=== PATIENT | male | born 1975 | race Caucasian/White ===

== ENCOUNTER 2020-09-19 14:16 | Emergency (ER) | payer BC, SELFPAY ==
[2020-09-19 14:24] VITALS: BP 148/89; PULSE 77; RESP 12; TEMP 36.3; O2SAT 99
--- NOTE | 2020-09-19 14:42 | ED.WOUNDLAC ---
HPI - Wound/Laceration General Chief Complaint: Wound/Laceration Stated Complaint: stabbed nail in rt hand Time Seen by Provider: 09/19/20 14:42 Source: patient Mode of arrival: ambulatory Limitations: no limitations History of Present Illness HPI narrative: Kris Knight is a 45 yo male with no PMH who comes to [facility] getting nail puncture injury to hand yesterday. Has small amount of erythema at the base of the finger 4 of right hand; needs tetanus booster Related Data Allergies Allergy/AdvReac Type Severity Reaction Status Date / Time Penicillins Allergy Unknown Verified 09/01/15 15:55 NUTS Allergy Unknown Uncoded 09/01/15 15:55 Review of Systems Review of Systems: Narrative: CONSTITUTIONAL: Denies fever, chills, sweats. EYES: Denies visual changes, redness, discharge. ENT: Denies rhinorrhea, congestion, sore throat, otalgia. CARDIOVASCULAR: Denies chest pain, palpitations, edema. RESPIRATORY: Denies dyspnea, wheezing, cough GASTROINTESTINAL: Denies abdominal pain, nausea, vomiting, diarrhea. GENITOURINARY: Denies dysuria, hematuria, abnormal discharge SKIN: Denies rash or itching. Small puncture wound of dorsum of hand base of finger for above the knuckle NEUROLOGIC: Denies numbness, or focal weakness. PSYCHIATRIC: Denies anxiety or depression. PMFSH Past Medical History Medical History No acute medical problems Family History Family History Other No acute medical problems Social History Social History (Updated 09/19/20 @ 14:49 by Joann Colon CNP) Smoking status: Never smoker Alcohol intake: current Comments At time of signature, I agree with nursing past medical, surgical, social and family history. There is no relevant family history pertinent to the presenting complaint. Blood pressure is elevated today with follow-up with [facility] next week Exam Narrative: Exam Narrative: GENERAL: This is a well-nourished, well-developed patient, in mild distress. HEAD: normocephalic, atraumatic. EYES: Sclera clear/white. Vision is grossly intact. EARS: External ears normal. Hearing grossly intact. NOSE: External nose normal without nasal discharge, nares without redness, no rhinorrhea. THROAT: Mucous membranes moist NECK: Neck supple CARDIOVASCULAR: Regular rate and rhythm without murmurs, gallops, or rubs. RESPIRATORY: Clear to auscultation. Breath sounds equal bilaterally. No wheezes, rales, or rhonchi. GASTROINTESTINAL: Abdomen soft, SKIN: warm, intact with no suspicious lesions or rash, good texture and turgor. No puncture on the dorsum of right hand with mild erythema surrounding the puncture (2x2) no induration no oozing no drainage; will give finger opposition, 5 out of 5 in her finger strength NEURO: awake, alert, and oriented to person, place and time. There were no obvious focal neurologic abnormalities. Steady gait EXTREMITIES: Normal range of motion. BACK: Nontender without deformity Course Course Emergency Course: [facility] on the dorsum of right hand base of finger for above PNP; swelling no drainage no induration erythematous 2 x 2 Started on clindamycin and given tetanus booster Vital Signs Vital signs: Vital Signs Temperature 97.3 F L 09/19/20 14:24 Pulse Rate 77 09/19/20 14:24 Respiratory Rate 12 09/19/20 14:24 Blood Pressure 148/89 H 09/19/20 14:24 Pulse Oximetry 99 09/19/20 14:24 Temperature 97.3 F L 09/19/20 14:24 Pulse Rate 77 09/19/20 14:24 Respiratory Rate 12 09/19/20 14:24 Blood Pressure 148/89 H 09/19/20 14:24 Pulse Oximetry 99 09/19/20 14:24 MDM - Wound/Laceration Differential Diagnosis Differential diagnosis: Likely laceration, abscess, abrasion, avulsion of skin and other Critical Care Time Critical Care Time Critical Care Time: No Discharge Plan Discharge Clinical
[2020-09-19] MEDS: TETANUS,DIPHTHERIA,AC PERTUSSIS ADULT (0.5 ML) BOOSTRIX IM (14:48)
== END 2020-09-19 15:09 | disposition home or self-care (01) ==
PROVIDERS: Emergency Provider Nurse Practitioner; PCP Physician Assistant
DX: S61.431A Puncture wound without foreign body of right hand, initial encounter (principal); W26.0XXA Contact with knife, initial encounter; Z23 Encounter for immunization
CPT/HCPCS: 90471; 90715; 99203; G0463

== ENCOUNTER 2021-09-29 00:36 | Day surgery (SDC) | payer BC, SELFPAY ==
[2021-09-14 12:31] VITALS: BMI 30.4
--- NOTE | 2021-09-28 12:51 | PM.HPGS ---
History of Present Illness History of Present Illness Consent: Risks, benefits, and alternatives have been discussed and questions answered. Patient agrees to proceed with procedure. Chief complaint: neoplasm screening Narrative: Kris Knight is a 46 year old male Was referred for colon cancer screening. He has a strong family history of colon cancer. Both his parents had precancerous polyps. His maternal grandmother had colon cancer. His sister who recently had a colonoscopy also was found to have polyps. Review of Systems Review of Systems: All systems reviewed & are unremarkable except as noted in HPI and below PMFSH Past Medical History Medical History Hypothyroidism No acute medical problems Family History Family History Other No acute medical problems Social History Social History Smoking status: Never smoker Alcohol intake: current Substance use type: does not use Living arrangements: with family Meds Home Medications and Allergies Home Medications Medication Instructions Recorded Confirmed Type clindamycin HCl 300 mg PO Q8H #30 cap 09/19/20 09/29/21 Rx levothyroxine 75 mcg PO DAILY 09/14/21 09/29/21 History Allergies Allergy/AdvReac Type Severity Reaction Status Date / Time Penicillins Allergy Unknown Hives Verified 09/29/21 06:49 NUTS Allergy Unknown Anaphylaxis Uncoded 09/29/21 06:49 Exam Resp: Auscultation: clear to auscultation bilaterally Cardio: Rate: regular rate Rhythm: regular rhythm GI: GI Palp: Yes Soft to palpation and No Tenderness to palpation present (GI) Assessment and Plan Assessment and plan (1) Colon cancer screening: Code(s): Z12.11 - Encounter for screening for malignant neoplasm of colon Status: Acute Assessment and Plan: Colonoscopy with possible biopsy or polypectomy or cautery or injection of substances.
--- NOTE | 2021-09-28 13:22 | WPDANESEPPF ---
Anes - Initial Pre Proc Eval Procedure: Operation Date: 09/29/21 08:00 Proposed Procedures p Screening Colonoscopy - Dylon Dalal MD Date/Time: 09/28/21 13:22 Surgeon: Dylon Dalal MD Pre Op Diagnosis: neoplasm screening Patient Data Age: 46 Gender: M Height: 1.73 m Weight: 90.9 kg Allergies Allergy/AdvReac Type Severity Reaction Status Date / Time Penicillins Allergy Unknown Hives Verified 09/29/21 06:49 NUTS Allergy Unknown Anaphylaxis Uncoded 09/29/21 06:49 Home Medications Medication Instructions Recorded Confirmed Type clindamycin HCl 300 mg PO Q8H #30 cap 09/19/20 09/29/21 Rx levothyroxine 75 mcg PO DAILY 09/14/21 09/29/21 History Patient hx anesthesia problems: none Family hx anesthesia problems: none Results Review: All pre-operative results and documents have been reviewed as part of the pre-operative evaluation. PMFSH Past Medical History Medical History Hypothyroidism No acute medical problems Family History Family History Other No acute medical problems Social History Social History Smoking status: Never smoker Alcohol intake: current Substance use type: does not use Living arrangements: with family Anes - Eval Final PreProcedure Day of Procedure 09/28/21 13:22 Patient weight: obese Heart: regular rate and rhythm Lungs: clear to auscultation and normal air movement Airway: Mallampati scale class II Neurological: alert and oriented Last oral intake: >/= 8 hours ASA classification: II Emergent: no Anesthetic plan: proceed Anesthesia type and monitoring: general GIVS and standard monitoring Results Review: All pre-operative results and documents have been reviewed as part of the pre-operative evaluation. Informed Consent: The patient's anesthetic plan and its attendant risks and benefits were discussed with the patient/family/POA. Questions were solicited and answers provided to the satisfaction of the patient/family/POA.
[2021-09-29 06:39] VITALS: BP 127/80; PULSE 80; RESP 18; TEMP 36.1; O2SAT 99; BMI 30.7
[2021-09-29] MEDS: LACTATED RINGERS 1,000 ML 150 ML IV CONT (06:58)
[2021-09-29] MEDS: SIMETHICONE ORAL SUSPENSION 20 MG/0.3 ML 30 ML BOTTLE 0.6 ML IRRIGATION (08:00)
[2021-09-29 08:06] VITALS: BP 124/86; PULSE 77; RESP 22; O2SAT 96
[2021-09-29 08:16] VITALS: BP 115/78; PULSE 61; RESP 22; O2SAT 100
[2021-09-29 08:26] VITALS: BP 117/88; PULSE 73; RESP 22; O2SAT 99
== END 2021-09-29 08:45 | disposition home or self-care (01) ==
PROVIDERS: PCP Physician Assistant; Visit Provider Internal Medicine Gastroenterology
PROC: 0DJD8ZZ Inspection of Lower Intestinal Tract, Via Natural or Artificial Opening Endoscopic (ICD-10-PCS; CPT 45378; principal; 2021-09-29 08:00)
DX: Z12.11 Encounter for screening for malignant neoplasm of colon (principal); K57.30 Diverticulosis of large intestine without perforation or abscess without bleeding; E03.9 Hypothyroidism, unspecified; Z80.0 Family history of malignant neoplasm of digestive organs; Z83.71 Family history of colonic polyps
CPT/HCPCS: 45378; J2704; J7120

== ENCOUNTER → 2022-09-21 12:47 | Outpatient (CLI) | payer BC, SELFPAY ==
--- NOTE | ~2022-09-21 | CT_ITS ---
EXAMINATION: CT sinus wo con DATE: 09/21/2022 13:00 INDICATION: Hypertrophy of the nasal turbinates. History of sinus surgery approximately 6 years ago. TECHNIQUE: Computed tomography (CT) of the paranasal sinuses was performed without intravenous contra st. The dose-length product (DLP) was 268.51 mGy-cm. Iterative reconstruction was used. COMPARISON: None FINDINGS: There is normal development and pneumatization of the paranasal sinuses. Opacification of a potentially isolated cell of the right sphenoid. Mild mucosal thickening in the bilateral middle and anterior ethmoid air cells. Somewhat nodular mucosal thickening in the medial right maxillary sinus with soft tissue opacification of the right ostiomeatal unit. The left ostiomeatal unit is patent. Vi sualized soft tissues are unremarkable. Midline nasal septum. Normal-appearing nasal turbinates. IMPRESSION: 1. Opacification of a potentially isolated cell of the right sphenoid which may represent an acute or chronic finding. Comparison to outside studies would be helpful, if available. 2. 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 3. Occluded right ostiomeatal unit. Reviewed, dictated and finalized at location K. IMPRESSION: 1. Opacification of a potentially isolated cell of the right sphenoid which may represent an acute or chronic finding. Comparison to outside studies would be helpful, if available. 2. 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 3. Occluded right ostiomeatal unit.
== END ==
PROVIDERS: PCP Nurse Practitioner Family; Visit Provider Nurse Practitioner Family
DX: J34.3 Hypertrophy of nasal turbinates (principal); R09.81 Nasal congestion; J32.9 Chronic sinusitis, unspecified; J33.1 Polypoid sinus degeneration; J34.89 Other specified disorders of nose and nasal sinuses
CPT/HCPCS: 70486